=== PATIENT | female | born 1960 | race Caucasian/White ===

== ENCOUNTER → 2023-05-21 | Outpatient (CLI) | payer MEDICAID | LOC: MHCPAIN 08:38 | DX: M54.50 Low back pain, unspecified (principal); M48.061 Spinal stenosis, lumbar region without neurogenic claudication; M47.816 Spondylosis without myelopathy or radiculopathy, lumbar region; M17.0 Bilateral primary osteoarthritis of knee; E66.01 Morbid (severe) obesity due to excess calories | CPT/HCPCS: G0463 ==

== ENCOUNTER → 2023-06-19 | Outpatient (CLI) | payer MEDICAID ==
[~2023-06-19] VITALS: Ht 162.6 cm; Wt 163.0 kg
[~2023-06-19] MED LIST: ALTOPREV40 MG PO; ASPIRIN E.C. 8181 MG PO; CYMBALTA 30MG30 MG PO; HCTZ 25MG TAB25 MG PO; LEVOXYL0.137 MG PO; MOBIC15 MG PO; NEURONTIN400 MG/CAP PO; NITROSTAT0.4 MG/TAB SL; NORVASC 10MG10 MG PO; PRINIVIL40 MG PO; ROBAXIN 50500 MG/TAB PO; ULTRAM ER100 MG PO
[2023-06-19 09:22] VITALS: BP 143/80; PULSE 64; TEMP 97.7
[2023-06-19 11:26] VITALS: BP 155/82; PULSE 80
[2023-06-19 11:27] VITALS: BP 142/85; PULSE 88
[2023-06-19 11:28] VITALS: BP 138/83; PULSE 79
[2023-06-19 11:29] VITALS: BP 131/86; PULSE 81
[2023-06-19 11:30] VITALS: BP 141/78; PULSE 84
== END ==
LOC: COL.RAD 08:27 → EDSEX 09:15 → COL.RAD 09:15
DX: R07.89 Other chest pain (principal)
CPT/HCPCS: A9500-JZ; J2785